=== PATIENT | female | born 1960 | race Caucasian/White ===

== ENCOUNTER 2021-08-24 06:28 | Day surgery (SDC) | payer OTHER, SELFPAY ==
[~2021-08-24] VITALS: Ht 162.6 cm; Wt 76.7 kg
[2021-08-24] MEDS ORDERED: MIDAZOLAM 5 MG/5 ML VIAL ONE ×2 (08:34→09:13)
[2021-08-24] MEDS ORDERED: LIDOCAINE 2% 100 MG/5 ML UJET TP ONE ×2 (08:34→09:00)
[2021-08-24] MEDS ORDERED: fentaNYL citrate 0.05 MG/ML VIAL ONE (08:34)
[2021-08-24] MEDS ORDERED: MIDAZOLAM 2 MG/2 ML VIAL IVP ONE (09:00)
[2021-08-24] MEDS ORDERED: fentaNYL citrate 0.05 MG/ML VIAL IVP ONE (09:00)
== END 2021-08-24 09:45 | disposition home or self-care (01) ==
LOC: MDS 06:28 → MMU 06:29 → MDS 09:45
PROVIDERS: ATTEND Internal Medicine Gastroenterology
DX: Z12.11 Encounter for screening for malignant neoplasm of colon (principal); K21.00 Gastro-esophageal reflux disease with esophagitis, without bleeding; D12.9 Benign neoplasm of anus and anal canal; E78.00 Pure hypercholesterolemia, unspecified; Z79.899 Other long term (current) drug therapy; Z20.822 Contact with and (suspected) exposure to COVID-19
CPT/HCPCS: J2250; J3010